=== PATIENT | male | born 1995 | race Caucasian/White ===

== ENCOUNTER 2023-09-06 19:50 | Emergency (ER) | payer OTHER, SELFPAY ==
[2023-09-06 19:59] VITALS: BP 137/86; PULSE 110; RESP 18; TEMP 36.6; O2SAT 98; BMI 25.0
[2023-09-06] MEDS: METHOCARBAMOL 500MG TABLET 500 MG PO (20:36)
[2023-09-06] MEDS: IBUPROFEN 400 MG TABLET PO (20:36)
[2023-09-06] MEDS: ACETAMINOPHEN 500MG TAB 1000 MG PO (20:36)
[2023-09-06] MEDS: LIDOCAINE 5% TRANSDERMAL PATCH 1 EACH TP (20:37)
--- NOTE | 2023-09-06 20:43 | PC.NURSE ---
I rounded on the pt. no needs voiced/ no new complaints at this time. Call calderon in reach.
--- NOTE | 2023-09-06 20:59 | ED_ITS ---
Discharge Plan Disposition Patient Disposition: Home, Self-Care Condition: Good Prescriptions Prescriptions: New acetaminophen 500 mg capsule 500 mg PO Q6H PRN (Reason: pain) Qty: 20 0RF ibuprofen 400 mg tablet 400 mg PO Q8H PRN (Reason: pain) Qty: 20 0RF methocarbamol 500 mg tablet 500 mg PO Q8H Qty: 90 0RF No Action buspirone 5 mg tablet 5 mg PO TID Patient Comments: TAKE 1 TABLET BY MOUTH THREE TIMES DAILY NEEDED FOR BREAKTHROUGH ANXIETY sertraline 50 mg tablet 50 mg PO DAILY Patient Comments: TAKE 1 TABLET BY MOUTH EVERY DAY hydroxyzine pamoate 25 mg capsule 25 mg PO DAILY dextroamphetamine-amphetamine [Adderall XR] 25 mg capsule,extended release 24hr 25 mg PO DAILY Patient Comments: TAKE 1 CAPSULE BY MOUTH EVERY MORNING buprenorphine-naloxone 8-2 mg Tablet, Sublingual 1 tab SUBLINGUAL DAILY Referrals Follow up/Referrals: Provider,Referral, MD [Primary Care Provider] - See instructions Clinical Impressions Clinical Impression: Acute left-sided back pain with sciatica Instructions Patient Instructions: DI for Sciatica Discharge ED Provider: Yudelka Bloom General Adult HPI General Chief complaint: PAIN Stated complaint: LT leg pain Time Seen by Provider: 09/06/23 20:10 Mode of Arrival: Ambulatory Source of Information: Patient Limitations: No Limitations Description of Symptoms (Recalled from ER Triage Doc. by RN): Pt presents to ED for L leg pain X 2-3 days. Pt states it starts at this hip area and travels down his leg. Pt has no hx of pain like this. History of Present Illness HPI narrative: Patient is a 28-year-old male with previous medical history of anxiety presenting with left leg pain. For the past month patient has had mild to moderate left leg pain that radiates from the low back. Over the past day it has become more constant and severe so he presented to the emergency department. Patient denies IV drug use, cancer history, saddle anesthesia, bladder/bowel incontinence, urinary hesitancy, weakness, or other concerns. Related Data Home Medications Medication Instructions Recorded Confirmed buprenorphine 8 mg-naloxone 2 mg 1 tab sublingual DAILY 09/06/23 09/06/23 sublingual tablet buspirone 5 mg tablet 5 mg PO TID 09/06/23 09/06/23 dextroamphetamine-amphetamine ER 25 mg PO DAILY 09/06/23 09/06/23 25 mg 24hr capsule,extend release (Adderall XR) hydroxyzine pamoate 25 mg capsule 25 mg PO DAILY 09/06/23 09/06/23 sertraline 50 mg tablet 50 mg PO DAILY 09/06/23 09/06/23 Previous Rx's Medication Instructions Recorded acetaminophen 500 mg capsule 500 mg PO Q6H PRN pain #20 caps 09/06/23 ibuprofen 400 mg tablet 400 mg PO Q8H PRN pain #20 tabs 09/06/23 methocarbamol 500 mg tablet 500 mg PO Q8H #90 tabs 09/06/23 Allergies Allergy/AdvReac Type Severity Reaction Status Date / Time Penicillins Allergy Verified 09/06/23 20:34 PFSH [facility] Disclaimer: The information contained in this section may have been updated after the patient was seen, as this information can be updated by other users. Social History Smoking Status: Current every day smoker alcohol intake: former current occupational status: employed Travel in the last 8 weeks: None ROS Obtained: Yes All systems reviewed & no additional complaints except as documented Physical Exam General General appearance: alert and in no apparent distress Head Head exam: atraumatic, normocephalic and normal inspection Eye Eye exam: Present normal appearance, PERRL and EOMI ENT ENT exam: Present normal exam, normal oropharynx and mucous membranes moist Neck Neck exam: Present normal inspection and full ROM; Absent meningismus Chest Chest inspection: Present normal inspection and symmetric chest wall rise; Absent tenderness Respiratory Respiratory exam: Present normal lung sounds bilaterally; Absent respiratory distress Cardiovascular Cardiovascular exam: Present regular rate and normal rhythm; Absent JVD Abdominal Exam Abdominal exam: Present soft and normal bowel sounds; Absent distention, tenderness or guarding Extremities Exam Extremities exam: Present normal inspection, full ROM, tenderness (Mild tenderness to palpation over the left upper gluteal region. Strength of the bilateral legs. Patient ambulates well. No weakness, no numbness.) and normal capillary refill; Absent calf tenderness Back Exam Back exam: Present normal inspection, paraspinal tenderness, sciatic notch tenderness (L) and other; Absent tenderness Neurological Exam Neurological exam: Present alert and oriented X3 Psychiatric Psychiatric exam: Present normal affect and normal mood Skin Skin exam: Present warm, dry, intact and normal color Medical Decision Making Elie Inquiry Pt receiving controlled substance: No Elie was queried for this patient: No Vital Signs: 09/06/23 19:59 09/06/23 21:16 Temperature 97.9 F 97.9 F Temperature Source Oral Oral Pulse Rate 97 H Pulse Rate [Left] 110 H Respiratory Rate 18 18 Blood Pressure 115/76 Blood Pressure [Left Arm] 137/86 Blood Pressure Mean [Left Arm] 103 02 Sat by Pulse Oximetry 98 Oxygen Delivery Method Room Air Room Air Orders (Tests/Meds): ED MEDICATIONS Discontinued Medications Generic Name Dose Route Start Last Admin Trade Name Charmaine PRN Reason Stop Dose Admin Acetaminophen 1,000 mg 09/06/23 20:20 09/06/23 20:36 Acetaminophen 500mg Tab PO 09/06/23 20:21 1,000 mg ONCE ONE Administration Ibuprofen 400 mg 09/06/23 20:20 09/06/23 20:36 Ibuprofen 400 Mg Tablet PO 09/06/23 20:21 400 mg ONCE ONE Administration Lidocaine 1 each 09/06/23 20:20 09/06/23 20:37 Lidocaine 5% Transdermal Patch TP 09/06/23 20:21 1 each ONCE ONE Administration Methocarbamol 500 mg 09/06/23 20:20 09/06/23 20:36 Methocarbamol 500mg Tablet PO 09/06/23 20:21 500 mg ONCE ONE Administration Medical Decision Narrative: Presentation concerning for sciatic back pain with no signs of more severe neurologic emergency such as cauda equina, cord compression, irreversible nerve damage, or other concerns. For this reason provided Tylenol, ibuprofen, Lidoderm patch, Robaxin, and on reassessment patient had improvement in his pain. On reassessment he felt able to walk better and ambulated well in the emergency department. Based on shared decision making with patient, prescribed Tylenol, ibuprofen, Robaxin, and provided referral to primary care. Also provided return precautions. Discharged while stable. Critical Care Critical Care Time Critical Care Time: No
[2023-09-06 21:16] VITALS: BP 115/76; PULSE 97; RESP 18; TEMP 36.6; O2SAT 100
== END 2023-09-06 21:22 | disposition home or self-care (01) ==
PROVIDERS: Emergency Provider Emergency Medicine
DX: M54.42 Lumbago with sciatica, left side (principal); F17.210 Nicotine dependence, cigarettes, uncomplicated
CPT/HCPCS: 99283

== ENCOUNTER 2023-12-12 02:29 | Emergency (ER) | payer OTHER, SELFPAY ==
[2023-12-12 02:31] VITALS: BP 133/91; PULSE 130; RESP 20; TEMP 39.7; O2SAT 95; BMI 25.8
--- NOTE | 2023-12-12 02:44 | CT_ITS ---
PROCEDURE INFORMATION: Exam: CT Neck With Contrast Exam date and time: 12/12/2023 3:25 AM Age: 28 years old Clinical indication: Neck pain and throat pain; Additional info: R sided facial/neck swelling, pain, trismus TECHNIQUE: Imaging protocol: Computed tomography of the neck with contrast. Radiation optimization: All CT scans at this facility use at least one of these dose optimization techniques: automated exposure control; mA and/or kV adjustment per patient size (includes targeted exams where dose is matched to clinical indication); or iterative reconstruction. Contrast material: ISOVUE; Contrast volume: 75 ml; Contrast route: IV; COMPARISON: No relevant prior studies available. FINDINGS: Salivary glands: There is asymmetrical enlargement of the right submandibular gland. There is an area of hypodensity extending anteriorly from the submandibular gland into the base of the tongue measuring 2.0 x 2.3 x 1.3 cm. Pharynx: Unremarkable. No significant tonsillar enlargement. Prevertebral and retropharyngeal spaces: Unremarkable. Larynx: Unremarkable. Epiglottis is normal. Thyroid: Normal. No enlarged or calcified nodules. Trachea: Visualized trachea is unremarkable. Lungs: Unremarkable as visualized. Lymph nodes: Unremarkable. No lymphadenopathy. Bones/joints: Unremarkable. No acute fracture. Soft tissues: Unremarkable. No significant soft tissue swelling. IMPRESSION: Edematous right submandibular gland. A region of branching hypodensity is seen anterior to this extending into the tongue which may represent obstructed ducts or focal abscess.
--- NOTE | 2023-12-12 02:46 | HMH.EDGENADL ---
Discharge Plan Disposition Patient Disposition: Xfer Short-Term Hosp Condition: Good Prescriptions Prescriptions: No Action methocarbamol 500 mg tablet 500 mg PO Q8H Patient Comments: TAKE 1 TABLET BY MOUTH EVERY 8 HOURS buspirone 10 mg tablet 10 mg PO TIDP PRN (Reason: Breakthrough anxiety) Patient Comments: TAKE 1 TABLET BY MOUTH THREE TIMES DAILY NEEDED FOR BREAKTHROUGH ANXIETY sertraline 50 mg tablet 50 mg PO DAILY Patient Comments: TAKE 1 TABLET BY MOUTH EVERY DAY hydroxyzine pamoate 25 mg capsule 25 mg PO Q6HP PRN (Reason: Anxiety) dextroamphetamine-amphetamine 25 mg capsule,extended release 24hr 25 mg PO BID Patient Comments: TAKE 1 CAPSULE BY MOUTH TWICE DAILY Referrals Follow up/Referrals: Provider,Referral, MD [Primary Care Provider] - See instructions Activity Restrictions/Add. Instructions Additional Instructions/Restrictions: You were evaluated in the emergency department today. Please proceed directly to [facility] emergency department at [address] [place] [address]. You will be evaluated in the emergency department. Do not eat or drink anything. Clinical Impressions Clinical Impression: Abscess of submandibular gland, Dental caries, Sepsis Discharge ED Provider: Karen Ivan General Adult HPI General Chief complaint: Dental/Oral Stated complaint: Swelling on right side of neck,bad tooth right jennie Time Seen by Provider: 12/12/23 02:40 Mode of Arrival: Ambulatory Source of Information: Patient Limitations: No Limitations Description of Symptoms (Recalled from ER Triage Doc. by RN): 28 M presents with c/o right sided facial pain and swelling that started 3-4 days ago while eating. Patient has obvious swelling to the right side of his face. Patent airway. Patient has subjective fevers at home with chills and increased pain. History of Present Illness HPI narrative: This patient is a 28-year-old male who reports a remote history of substance abuse for which he is now on Suboxone as well as psychiatric issues presenting to the emergency department for evaluation with concern for right-sided facial/neck pain and swelling. He notes that it started about 3 to 4 days ago. He states he has bad teeth, as he has not had money to see a dentist, so he thinks it started out as a broken tooth. The pain has rapidly progressed and he states it is more more swollen every day. As a result of the swelling, he is now having trouble swallowing and eating. He is still able to tolerate his secretions. He also has had fevers and chills as well as nausea. No chest pain or shortness of breath noted. He denies any history of issues like this in the past, but states he has had a lot of dental issues in the past. Related Data Home Medications Medication Instructions Recorded Confirmed buspirone 10 mg tablet 10 mg PO TIDP PRN Breakthrough 12/12/23 12/12/23 anxiety dextroamphetamine-amphetamine ER 25 mg PO BID 12/12/23 12/12/23 25 mg 24hr capsule,extend release hydroxyzine pamoate 25 mg capsule 25 mg PO Q6HP PRN Anxiety 12/12/23 12/12/23 methocarbamol 500 mg tablet 500 mg PO Q8H 12/12/23 12/12/23 sertraline 50 mg tablet 50 mg PO DAILY 12/12/23 12/12/23 Allergies Allergy/AdvReac Type Severity Reaction Status Date / Time Penicillins Allergy Intermediate Hives Verified 12/12/23 03:18 [facility] Disclaimer: The information contained in this section may have been updated after the patient was seen, as this information can be updated by other users. Social History (Updated 12/12/23 @ 03:21 by Erik Evans RN) Smoking Status: Current every day smoker alcohol intake: current current occupational status: employed Travel in the last 8 weeks: None ROS Obtained: Yes All systems reviewed & no additional complaints except as documented Physical Exam General General appearance: alert and in no apparent distress Head Head exam: atraumatic and normocephalic Eye Eye exam: Present normal appearance, PERRL and EOMI ENT ENT exam: Present mucous membranes moist and normal external ear exam Expanded ENT Exam External ear exam: Present normal external inspection Mouth exam: Present trismus and tongue elevation; Absent drooling, lip swelling or tongue swelling Teeth exam: Present dental caries Neck Neck exam: Present full ROM, trachea midline, tenderness and other (Right-sided subungual and submandibular swelling with trismus. No drooling. No stridor.) Chest Chest inspection: Present normal inspection and symmetric chest wall rise; Absent tenderness Respiratory Respiratory exam: Present normal lung sounds bilaterally; Absent respiratory distress, wheezes, stridor or accessory muscle use Cardiovascular Cardiovascular exam: Present normal rhythm and tachycardia Abdominal Exam Abdominal exam: Present soft; Absent distention, tenderness or guarding Extremities Exam Extremities exam: Present normal inspection, full ROM and normal capillary refill; Absent tenderness or edema Back Exam Back exam: Present normal inspection and full ROM; Absent tenderness Neurological Exam Neurological exam: Present alert, oriented X3, CN II-XII intact and normal gait; Absent motor sensory deficit Psychiatric Psychiatric exam: Present normal affect and normal mood Skin Skin exam: Present warm and dry Medical Decision Making Medical Records Medical records reviewed: Yes I reviewed the patient's medical records. Elie Inquiry Pt receiving controlled substance: No Vital Signs: 12/12/23 02:31 12/12/23 03:15 12/12/23 03:30 Temperature 103.4 F H 102.6 F H Temperature Source Oral Oral Pulse Rate 107 H 111 H Pulse Rate [Left] 130 H Respiratory Rate 20 30 H 25 H Blood Pressure 117/81 123/78 Blood Pressure [Right Arm] 133/91 H Blood Pressure Mean 89 Blood Pressure Mean [Right Arm] 105 Blood Pressure Source [Right Arm] Automatic Cuff Blood Pressure Position [Right Arm] Sitting 02 Sat by Pulse Oximetry 95 95 95 Oxygen Delivery Method Room Air Room Air Room Air 12/12/23 04:00 12/12/23 04:30 Temperature 100 F H Temperature Source Pulse Rate 96 H 87 Pulse Rate [Left] Respiratory Rate 24 21 Blood Pressure 116/75 114/83 Blood Pressure [Right Arm] Blood Pressure Mean 84 90 Blood Pressure Mean [Right Arm] Blood Pressure Source [Right Arm] Blood Pressure Position [Right Arm] 02 Sat by Pulse Oximetry 96 96 Oxygen Delivery Method Room Air Room Air Lab Data Lab results reviewed: Yes I reviewed the patient's lab results. Lab Results 12/12/23 02:47: WBC 13.6 H, RBC 5.00, Hgb 15.1, Hct 45.0, MCV 89.8, MCH 30.2, MCHC 33.6, RDW 13.2, Plt Count 209, MPV 7.9, Neut % (Auto) 90.1 H, Lymph % (Auto) 5.0 L, Crosby % (Auto) 4.6, Eos % (Auto) 0.2, Baso % (Auto) 0.2, Neut # (Auto) 12.2 H, Lymph # (Auto) 0.7, Crosby # (Auto) 0.6, Eos # (Auto) 0.0, Baso # (Auto) 0.0, Total Counted 100, Neutrophils % (Manual) 87 H, Lymphocytes % (Manual) 12, Eosinophils % (Manual) 1, Platelet Estimate Normal, RBC Morphology Normal, ESR 20 H, Sodium 137, Potassium 3.4 L, Chloride 102, Carbon Dioxide 27, Anion Gap 11.4, BUN 9, Creatinine 0.80, Estimated Creat Clear 148, Estimated GFR 117, Est GFR ( Amer) 141, Glucose 124 H, Lactate 1.6, Calcium 9.5, Total Bilirubin 1.0, AST 27, ALT 22, Alkaline Phosphatase 50, C-Reactive Protein 181.9 H, Total Protein 7.5, Albumin 4.2, Globulin 3.3 H, Albumin/Globulin Ratio 1.3 12/12/23 02:47 12/12/23 02:47 Orders (Tests/Meds): ED MEDICATIONS Generic Name Dose Route Start Last Admin Trade Name Freq PRN Reason Stop Dose Admin Sodium Chloride 10 ml 12/12/23 03:28 12/12/23 03:29 Sodium Chloride 0.9% 10ml Syr (Rad Only) IV 01/11/24 03:27 10 ml NEEDED PRN Administration Maintain IV Site Discontinued Medications Generic Name Dose Route Start Last Admin Trade Name Freq PRN Reason Stop Dose Admin Acetaminophen 1,000 mg 12/12/23 02:44 12/12/23 02:55 Acetaminophen 1,000mg/100ml Vial IV 12/12/23 02:45 1,000 mg ONCE ONE Administration Clindamycin Phosphate 600 mg in 50 mls @ 100 mls/hr 12/12/23 02:45 12/12/23 02:56 Clindamycin 600mg/50ml D5w Premix IV 12/12/23 03:14 100 mls/hr ONCE ONE Administration Lactated Ringer's 1,980 mls @ 990 mls/hr 12/12/23 02:53 12/12/23 02:55 Lactated Ringer's 1000 Ml Bag 30 ml/kg infuse over 2 hr (1980 ml) 12/12/23 04:52 990 mls/hr IV Administration .Q2H ONE Iopamidol 75 ml 12/12/23 03:28 12/12/23 03:29 Iopamidol-370 (76%);100ml Bottle IV 12/12/23 03:29 75 ml ONCE ONE Administration Ketorolac Tromethamine 15 mg 12/12/23 02:44 12/12/23 02:55 Ketorolac 30mg/Ml Vial IV 12/12/23 02:45 15 mg ONCE ONE Administration Ondansetron HCl 4 mg 12/12/23 02:44 12/12/23 02:56 Ondansetron 4mg/2ml Vial IV 12/12/23 02:45 4 mg ONCE ONE Administration ORDERS Category Date Time Status CT soft tissue neck w con Stat Cat Scan 12/12/23 02:44 Completed CRP [C-Reactive Protein] Stat Lab 12/12/23 02:47 Completed Complete Blood Count Auto Diff Stat Lab 12/12/23 02:47 Completed Comprehensive Metabolic Panel Stat Lab 12/12/23 02:47 Completed ESR [Erythrocyte Sedimentation Rate] Stat Lab 12/12/23 02:47 Completed Lactic Acid Stat Lab 12/12/23 02:47 Completed Blood Culture Stat Micro 12/12/23 02:50 Ordered Medical Decision Narrative: In summary, this patient is a 28-year-old male presenting to the Emergency Department for evaluation of face and neck swelling. Differential diagnoses considered include but are not limited to cellulitis, abscess, Stanton's angina. Ruling out the most morbid conditions drove assessment. It should be noted patient's history includes remote history of polysubstance use which is reportedly at goal therapy. This complicates all aspects of care by increasing patient's risk for morbidity. On exam, the patient is sitting upright in bed in no acute distress. No drooling or stridor noted, but he does have mild trismus. He has mild sublingual swelling as well as significant submandibular swelling on the right side. He has no meningismus. He is febrile and tachycardic. Workup included CBC, CMP, ESR, CRP, lactic acid, blood cultures, and CT soft tissue neck with IV contrast. He was given a sepsis bolus of IV fluids as well as IV clindamycin, as he is penicillin allergic. He is also given IV Toradol, acetaminophen, and Zofran for symptomatic improvement. I independently interpreted CT prior to the radiologist read and noted submandibular abscess. Please see their read for final interpretation. Labs were obtained that demonstrated leukocytosis and elevated inflammatory markers. On reassessment, patient had good improvement after administration of as above including IV fluids. He has improved perfusion and heart rate. Given submandibular abscess with positive SIRS criteria, I feel the patient would benefit from transfer to higher level of care for evaluation and management by oral surgery. I had an interactive discussion with both Dr. Isabel in the transfer center and Dr. Gallagher with FS, and accepted the patient to [facility] emergency department for evaluation and management. I advised the patient that I would recommend sending him by ambulance, as he is potentially risk for airway compromise and worsening of condition. He wants to go POV. He understands to proceed directly there, and he was given instructions for NPO. Patient left in stable condition with instructions to proceed directly to [facility] ED for evaluation. Critical Care Critical Care Time Critical Care Time: No
[2023-12-12] MEDS: ACETAMINOPHEN 1,000MG/100ML VIAL 1000 MG IV (02:55)
[2023-12-12] MEDS: LACTATED RINGERS 1000ML 1,980 ML 990 ML IV (02:55)
[2023-12-12] MEDS: KETOROLAC 30MG/ML VIAL 15 MG IV (02:55)
[2023-12-12] MEDS: CLINDAMYCIN PHOSPHATE/D5W 600 MG/50 ML PIGGYBACK 100 MG IV (02:56)
[2023-12-12] MEDS: ONDANSETRON 4MG/2ML VIAL 4 MG IV (02:56)
[2023-12-12 03:06] LABS: Basophils % 0.2 % (0.1-2.0); Eosinophils % 0.2 % (0.1-12.0); Hemoglobin 15.1 g/dL (14.1-18.0); Lymphocytes # 0.7 K/mm3 (0.7-4.5); Mean Corpuscular HGB Conc 33.6 g/dL (31.8-35.4); Mean Corpuscular Hemoglobin 30.2 pg (27.0-31.2); Mean Corpuscular Volume 89.8 fl (80-94); Mean Platelet Volume 7.9 fl (7.4-10.4); Monocytes # 0.6 K/mm3 (0.1-1.0); Monocytes % 4.6 % (1.7-9.3); Neutrophils # 12.2 K/mm3 (1.8-7.8); Neutrophils % 90.1 % (37.0-80.0); Platelet Count 209 K/mm3 (142-424); Red Cell Distribution Width 13.2 % (11.5-17.5); White Blood Count 13.6 K/mm3 (4.8-10.8)
[2023-12-12 03:08] LABS: Chloride 102 mmol/L (98-107); Potassium 3.4 mmoL/L (3.5-5.1); Sodium 137 mmol/L (136-145)
[2023-12-12 03:10] LABS: Alanine Aminotransferase 22 U/L (12-78); Blood Urea Nitrogen 9 mg/dl (9-20); Creatinine Clearance Estimated 148 mL/min (50-200); Estimated Glomerular Filt Rate 117 ml/min (>60); GFR (African American) 141 ML/MIN (>60); MANUAL DIFFERENTIAL MANUAL DIFFERENTIAL (MANUAL DIFF)
[2023-12-12 03:11] LABS: Albumin Level 4.2 g/dl (3.5-5.0); Albumin/Globulin Ratio 1.3 (1.1-1.8); Alkaline Phosphatase 50 U/L (38-126); Anion Gap 11.4 mEq/L (5-15); Aspartate Amino Transferase 27 U/L (17-59); Calcium 9.5 mg/dl (8.4-10.2); Carbon Dioxide 27 mmol/L (22.0-30.0); Globulin 3.3 g/dL (1.3-3.2); Glucose 124 mg/dl (74-100); Total Protein,Serum 7.5 g/dl (6.3-8.2)
[2023-12-12 03:12] LABS: Lactic Acid 1.6 mmol/L (0.7-2.1)
[2023-12-12 03:15] VITALS: BP 117/81; PULSE 107; RESP 30; O2SAT 95
[2023-12-12 03:16] LABS: C-Reactive Protein 181.9 mg/L (0-4)
[2023-12-12] MEDS: SODIUM CHLORIDE 0.9% 10ML SYR (RAD ONLY) 10 ML IV (03:29)
[2023-12-12] MEDS: IOPAMIDOL-370 (76%);100ML BOTTLE 75 ML IV (03:29)
[2023-12-12 03:30] VITALS: BP 123/78; PULSE 111; RESP 25; TEMP 39.2; O2SAT 95
[2023-12-12 03:39] LABS: Eosinophils % 1 % (0-3); Lymphocytes % 12 % (10-50); Neutrophils % 87 % (42-76); Platelet Estimate Normal; RBC Morphology Normal; Total Cells Counted 100
[2023-12-12 03:41] LABS: Erythrocyte Sedimentation Rate 20 mm/hr (0-15)
[2023-12-12 04:00] VITALS: BP 116/75; PULSE 96; RESP 24; TEMP 37.7; O2SAT 96
[2023-12-12 04:30] VITALS: BP 114/83; PULSE 87; RESP 21; O2SAT 96
[2023-12-12 05:01] VITALS: BP 114/83; PULSE 96; RESP 23; TEMP 37.7; O2SAT 96
== END 2023-12-12 05:09 | disposition short-term general hospital (02) ==
PROVIDERS: Emergency Provider Emergency Medicine
DX: A41.9 Sepsis, unspecified organism (principal); K11.3 Abscess of salivary gland; K02.9 Dental caries, unspecified; R50.9 Fever, unspecified; F17.210 Nicotine dependence, cigarettes, uncomplicated
CPT/HCPCS: 70491; 80053; 83605; 85007; 85025; 85027; 85651; 86140; 87040; 96365; 96375; 99285; J0131; J1885; J2405; J7120; Q9967